=== PATIENT | female | born 1980 | race Hispanic/Latino ===

== ENCOUNTER 2018-08-15 20:24 | Emergency (ER) | payer OTHER, SELFPAY ==
[2018-08-15 20:36] VITALS: BP 125/64; PULSE 66; RESP 16; TEMP 36.9; O2SAT 98
--- NOTE | 2018-08-15 20:41 | DI.RAD.S_ITS ---
PROCEDURE: XR ACUTE ABDOMEN SERIES INDICATIONS: Abdominal pain TECHNIQUE: One view chest and two views of the abdomen were acquired. COMPARISON: None. FINDINGS: Surgical changes and devices: None. Chest: Lungs are clear. Heart size is normal. No pleural effusions. No pneumoperitoneum. Abdomen: Bowel gas pattern is nonobstructive however there is a large amount of diffuse stool. Gas and stool projects in the rectal vault. No suspicious calcifications. Visualized solid organ contours appear normal. Bones: No suspicious bony lesions. IMPRESSION: No specific evidence of bowel obstruction seen at this time although if the patient's symptoms do not improve, continued surveillance with abdominal series radiographs could be performed.Large amount of stool raising possibility of constipation. Dictated by: Colby Ryan M.D. on 08/15/2018 at 21:48 Approved by: Colby Ryan M.D. on 08/15/2018 at 21:49
[2018-08-15] MEDS: SODIUM CHLORIDE 0.9% 1,000 ML 150 ML IV (21:07)
[2018-08-15 21:10] LABS: Add Manual Diff / Slide Review NO; Basophils Absolute Auto 100 /uL (0-100); Basophils Percent Auto 0.8 % (0-2); Eosinophils Absolute Auto 100 /uL (0-450); Eosinophils Percent Auto 1.4 % (2-4); Hematocrit 40.1 % (36-46); Hemoglobin 13.3 g/dL (12.0-16.0); Lymphocytes Absolute Auto 4400 /uL (1100-4500); Lymphocytes Percent Auto 42.2 % (25-40); Mean Corpuscular HGB Conc 33.1 % (30-36); Mean Corpuscular Hemoglobin 28.6 PG (26-34); Mean Corpuscular Volume 86.3 fL (80-100); Monocytes Absolute Auto 800 /uL (0-900); Monocytes Percent Auto 7.6 % (3-14); Neutrophils Absolute Auto 5000 /uL (1500-7000); Platelet Count 261 X10^3/uL (150-400); Red Blood Cell Count 4.65 X10^6/uL (4.0-5.2); Red Cell Distribution Width 13.1 % (11.6-14.8); White Blood Cell Count 10.5 X10^3/uL (4.5-11.0)
[2018-08-15 21:20] LABS: Alanine Aminotransferase 16 IU/L (9-52); Albumin Globulin Ratio 1.5 (1.0-2.8); Alkaline Phosphatase 58 U/L (38-126); Aspartate Aminotransferase 19 IU/L (14-36); BUN Creatinine Ratio 21.7 (6-22); Bilirubin Total 0.3 mg/dL (0.2-1.3); Blood Urea Nitrogen 13 mg/dL (7-17); Calcium 8.9 mg/dL (8.4-10.2); Carbon Dioxide 24 mmol/L (22-32); Chloride 104 mmol/L (98-107); Estimated Glomerular Filt Rate > 60.0 mL/min (>60); Globulin 3.4 g/dL (1.7-4.1); Glucose 84 mg/dL (70-100); HEMOLYSIS 17 (0-50); Lipase 160 U/L (23-300); Potassium 3.3 mmol/L (3.4-5.1); Sodium 143 mmol/L (137-145); Total Protein 8.4 g/dL (6.3-8.2)
--- NOTE | 2018-08-15 21:21 | ED.ABDPAIN ---
HPI - Abdominal Pain General Chief Complaint: Abdominal Pain Stated Complaint: states side lower abdominal pain Time Seen by Provider: 08/15/18 20:25 Source: patient and family Mode of arrival: ambulatory Limitations: no limitations History of Present Illness HPI narrative: 38-year-old female, nonsmoker presents with her and children and a chief complaint of gradually worsening right lower quadrant pain over the course of the day. She states she went to bed feeling fine and awoke this morning at about 4:00 a.m. with pain. She states is worse with bowel movement and with moving. She states that on the drive and she felt every bump in the road. She denies fever or chills nor nausea or vomiting but does have decreased appetite. She states she last ate at about 6:00 p.m.. Her last bowel movement was this morning. She expects to have her next menstrual cycle in about 4 days. She denies dysuria nor vaginal bleeding or discharge. She has had episodes of abdominal pelvic pain thought to be related to adhesions in the past. MD complaint: abdominal pain Onset (ago): hour(s) Pain Consistency: constant Location: RLQ Severity: mild Quality: cramping and aching Radiation: R flank Exacerbating factors: bowel movement and movement Associated symptoms: anorexia Related Data Patient : No Allergies Allergy/AdvReac Type Severity Reaction Status Date / Time acetaminophen [From Vicodin] Allergy Verified 08/15/18 20:38 hydrocodone [From Vicodin] Allergy Verified 08/15/18 20:38 Review of Systems Constitutional Denies chills, Denies fever(s), Denies lethargy and Denies weakness Eyes Denies change in vision, Denies eye discharge, Denies irritation and Denies loss of vision ENT Ears, Nose, Mouth, and Throat: Denies change in voice, Denies neck pain and Denies sore throat Cardiovascular Denies chest pain, Denies irregular heart rhythm, Denies lightheadedness, Denies palpitations, Denies dyspnea, Denies dyspnea on exertion and Denies orthopnea Respiratory Denies cough, Denies dyspnea, Denies dyspnea on exertion and Denies wheezing Gastrointestinal Gastrointestinal: Reports abdominal pain, Denies change in bowel habits, Denies diarrhea, Denies nausea and Denies vomiting Genitourinary Denies hematuria, Denies flank pain, Denies urinary incontinence and Denies urinary urgency Musculoskeletal Denies neck pain Integumentary/Breasts Denies pruritus, Denies erythema, Denies rash and Denies wounds Neurologic Denies confusion, Denies loss of vision and Denies weakness Psychiatric Denies anxiety, Denies confusion, Denies depression, Denies homicidal ideation and Denies suicidal ideation Endocrine Denies palpitations Hematologic/Lymphatic Denies easy bruising Allergic/Immunologic Denies wheezing PFSH Surgical History History of (Acute) Social History marital status: number of children: 4 household members: spouse and children Smoking Status: Never smoker Social History marital status: number of children: 4 household members: spouse and children Smoking Status: Never smoker Exam Narrative Exam Narrative: GENERAL: 38-year-old female obviously uncomfortable, attempting to remain still HEAD: Atraumatic. Normocephalic. No temporal or scalp tenderness. EYES: Pupils equal round and reactive. Extraocular motions intact. No scleral icterus. No injection or drainage. ENT: Nose without bleeding, purulent drainage or septal hematoma. Throat without erythema, tonsillar hypertrophy or exudate. Uvula midline. Airway patent. NECK: Trachea midline. No JVD or lymphadenopathy. Supple, nontender, no meningeal signs. CARDIOVASCULAR: Regular rate and rhythm without murmurs, gallops, or rubs. RESPIRATORY: Clear to auscultation. Breath sounds equal bilaterally. No wheezes, rales, or rhonchi. GASTROINTESTINAL: Abdomen soft, tenderness in right lower quadrant with localized peritonitis, nondistended. No hepato-splenomegaly, or palpable masses. No guarding. Negative heel tap, negative obturator, negative psoas EXTREMITIES: No clubbing, cyanosis, or edema. No joint tenderness, effusion, or edema noted. BACK: Nontender without deformity or crepitance. No flank tenderness. NEURO: AOx3. SKIN: No rash or erythema. Initial Vital Signs Initial Vital Signs: Vital Signs Temperature 98.4 F 08/15/18 20:36 Pulse Rate 66 08/15/18 20:36 Respiratory Rate 16 08/15/18 20:36 Blood Pressure 125/64 08/15/18 20:36 Pulse Oximetry 98 08/15/18 20:36 Course Orders Ordered: ED Orders 08/15/18 20:41 XR acute abdomen series Stat 08/15/18 21:00 Complete Blood Count AUTO DIFF Stat Comprehensive Metabolic Panel Stat Lipase Stat 08/15/18 21:22 CT abdomen pelvis w con Stat Sodium Chloride (Normal Saline 0.9%) 1,000 mls @ 150 mls/hr IV CONT TERRANCE Last Admin: 08/15/18 21:07 Dose: 150 mls/hr Vital Signs - 8 hr 08/15/18 20:36 08/15/18 22:02 Temperature 98.4 F Pulse Rate 66 78 Respiratory Rate 16 Blood Pressure 125/64 Blood Pressure [Left Arm] 117/62 Pulse Oximetry 98 100 MDM - Abdominal Pain Differential Diagnosis Differential diagnosis: Likely abdominal pain, acute appendicitis, calculus of kidney, constipation, diverticulitis, endometriosis, gastroenteritis, pancreatitis and small bowel obstruction Medical Records Attestation: I reviewed the patient's medical records. Lab Data Attestation: I reviewed the patient's lab results. Result diagrams: 08/15/18 21:00 08/15/18 21:00 Lab Results 08/15/18 08/15/18 Range/Units 21:00 21:00 WBC 10.5 (4.5-11.0) X10^3/uL RBC 4.65 (4.0-5.2) X10^6/uL Hgb 13.3 (12.0-16.0) g/dL Hct 40.1 (36-46) % MCV 86.3 (80-100) fL MCH 28.6 (26-34) PG MCHC 33.1 (30-36) % RDW 13.1 (11.6-14.8) % Plt Count 261 (150-400) X10^3/uL Neut % (Auto) 48.0 L (50-75) % Lymph % (Auto) 42.2 H (25-40) % Bryan % (Auto) 7.6 (3-14) % Eos % (Auto) 1.4 L (2-4) % Baso % (Auto) 0.8 (0-2) % Neut # (Auto) 5000 (7957-2109) /uL Lymph # (Auto) 4400 (1026-8136) /uL Bryan # (Auto) 800 (0-900) /uL Eos # (Auto) 100 (0-450) /uL Baso # (Auto) 100 (0-100) /uL Sodium 143 (137-145) mmol/L Potassium 3.3 L (3.4-5.1) mmol/L Chloride 104 (98-107) mmol/L Carbon Dioxide 24 (22-32) mmol/L BUN 13 (7-17) mg/dL Creatinine 0.60 (0.52-1.04) mg/dL Estimated GFR > 60.0 (>60) mL/min BUN/Creatinine Ratio 21.7 (6-22) Glucose 84 (70-100) mg/dL Calcium 8.9 (8.4-10.2) mg/dL Total Bilirubin 0.3 (0.2-1.3) mg/dL AST 19 (14-36) IU/L ALT 16 (9-52) IU/L Alkaline Phosphatase 58 (38-126) U/L Total Protein 8.4 H (6.3-8.2) g/dL Albumin 5.0 (3.5-5.0) g/dL Globulin 3.4 (1.7-4.1) g/dL Albumin/Globulin Ratio 1.5 (1.0-2.8) Lipase 160 (23-300) U/L Point of care testing: Point of Care Testing Test Results Negative Urine Dip Bedside Urine Glucose Negative Bedside Urine Bilirubin - Negative Bedside Urine Ketone - Negative Urine Specific [place] 1.025 Bedside Urine Occult Blood - Negative Bedside Urine pH 6.0 Bedside Urine Protein +/- 15 Bedside Urine Urobilinogen - Negative Bedside Urine Nitrite - Negative Bedside Urine Leukocytes - Negative Esterase Imaging Data Abdominal x-ray: Radiologist's impression: [place] [address] XRay Report Signed Patient: Geovanna Caro MMR#: [id number] : 1980Acct:[id number] Age/Sex: 38 / FDate of Service: 08/15/18 Loc: ED Accession Number: [id number] Procedure: XR acute abdomen series Ordering Provider: Jeremiah Hobbs D.O. PROCEDURE: XR ACUTE ABDOMEN SERIES INDICATIONS: Abdominal pain TECHNIQUE: One view chest and two views of the abdomen were acquired. COMPARISON: None. FINDINGS: Surgical changes and devices: None. Chest: Lungs are clear. Heart size is normal. No pleural effusions. No pneumoperitoneum. Abdomen: Bowel gas pattern is nonobstructive however there is a large amount of diffuse stool. Gas and stool projects in the rectal vault. No suspicious calcifications. Visualized solid organ contours appear normal. Bones: No suspicious bony lesions. IMPRESSION: No specific evidence of bowel obstruction seen at this time although if the patient's symptoms do not improve, continued surveillance with abdominal series radiographs could be performed.Large amount of stool raising possibility of constipation. Dictated by: Colby Ryan M.D. on 08/15/2018 at 21:48 CT scan - abdomen: Radiologist's impression: [address] [address] [address] Scan Report Signed Patient: Geovanna Caro MMR#: [id number] : 1980Acct:[id number] Age/Sex: 38 / FDate of Service: 08/15/18 Loc: ED Accession Number: [id number] Procedure: CT abdomen pelvis w con Ordering Provider: Jeremiah Hobbs D.O. PROCEDURE: CT ABDOMEN PELVIS W CON INDICATIONS: severe RLQ pain TECHNIQUE: After the administration of intravenous contrast, 5 mm thick sections acquired from the diaphragm to the symphysis. 5 mm coronal and sagittal reformats were acquired. For radiation dose reduction, the following was used: automated exposure control, adjustment of mA and/or kV according to patient size. COMPARISON: None. FINDINGS: Image quality: Excellent. ABDOMEN: Lung bases: Lung bases are clear. Heart size is normal. Solid organs: Liver is normal in size and enhancement. Gallbladder partially collapsed otherwise unremarkable. Biliary system is non dilated. Pancreas enhances normally. Spleen is normal in size and enhancement. No adrenal nodules. Kidneys demonstrate normal size and enhancement, without hydronephrosis. Peritoneum and bowel: Bowel loops demonstrate normal wall thickness and caliber. No free fluid or air. The appendix is within normal limits Rectum is grossly unremarkable Nodes and vessels: No retroperitoneal or mesenteric adenopathy by size criteria. Aorta and inferior vena cava are normal in size. Miscellaneous: No ventral hernias. PELVIS: Genitourinary: Bladder wall thickness is normal. Heterogeneous attenuation seen in the right adnexa raising possibility of possible hemorrhagic or ruptured ovarian cyst (in the setting of negative test). Miscellaneous: No inguinal hernias or adenopathy. Bones: No suspicious bony lesions. No vertebral body compression fractures. IMPRESSION: Normal appearance of the appendix. Possible hemorrhagic or ruptured ovarian cyst although technically indeterminate. This could be further assessed with pelvic ultrasound as clinically warranted. Elsewhere, no acute process seen. Dictated by: Colby Ryan M.D. on 08/15/2018 at 21:54 Approved by: Colby Ryan M.D. on 08/15/2018 at 21:58 [facility] Narrative Medical decision making narrative: I had a lengthy discussion with the patient and her at the bedside. The CT has come back and shows no appendicitis or other ominous finding and suggests the possibility of ovarian cyst which is very consistent patient's presentation. We discussed whether not a pelvic ultrasound would change her disposition tonight and I think it is unlikely. Ovarian torsion and tubo-ovarian abscess are considered but thought much less likely. She has had her questions answered to her apparent satisfaction, has been given extensive return precautions and has verbalized her understanding of those precautions. Discharge Plan Departure Patient Disposition: Home Clinical Impression: Ovarian cyst Qualifiers: Laterality: right Qualified Code(s): N83.201 - Unspecified ovarian cyst, right side Instructions: DI for Ovarian Cyst Activity Restrictions/Additional Instructions: *You have been diagnosed with [ acute right lower quadrant pain from ovarian cyst] *What to do: *Take medications as directed *Follow up with your primary care provider in 2-3 days, call for an appointment. Let them know you were seen in the Emergency Department and that we ask that you be seen in follow up *Return to ER if you should have any new, worsening or concerning symptoms, such as [ worsening pain, fever, vomiting or any other bothersome symptoms]
--- NOTE | 2018-08-15 21:32 | ED_ITS ---
HPI - Abdominal Pain General Chief Complaint: Abdominal Pain Stated Complaint: states side lower abdominal pain Time Seen by Provider: 08/15/18 20:25 Source: patient and family Mode of arrival: ambulatory Limitations: no limitations History of Present Illness HPI narrative: 38-year-old female, nonsmoker presents with her and children and a chief complaint of gradually worsening right lower quadrant pain over the course of the day. She states she went to bed feeling fine and awoke this morning at about 4:00 a.m. with pain. She states is worse with bowel movement and with moving. She states that on the drive and she felt every bump in the road. She denies fever or chills nor nausea or vomiting but does have decreased appetite. She states she last ate at about 6:00 p.m.. Her last bowel movement was this morning. She expects to have her next menstrual cycle in about 4 days. She denies dysuria nor vaginal bleeding or discharge. She has had episodes of abdominal pelvic pain thought to be related to adhesions in the past. MD complaint: abdominal pain Onset (ago): hour(s) Pain Consistency: constant Location: RLQ Severity: mild Quality: cramping and aching Radiation: R flank Exacerbating factors: bowel movement and movement Associated symptoms: anorexia Related Data Patient : No Allergies Allergy/AdvReac Type Severity Reaction Status Date / Time acetaminophen [From Vicodin] Allergy Verified 08/15/18 20:38 hydrocodone [From Vicodin] Allergy Verified 08/15/18 20:38 Review of Systems Constitutional Denies chills, Denies fever(s), Denies lethargy and Denies weakness Eyes Denies change in vision, Denies eye discharge, Denies irritation and Denies loss of vision ENT Ears, Nose, Mouth, and Throat: Denies change in voice, Denies neck pain and Denies sore throat Cardiovascular Denies chest pain, Denies irregular heart rhythm, Denies lightheadedness, Denies palpitations, Denies dyspnea, Denies dyspnea on exertion and Denies orthopnea Respiratory Denies cough, Denies dyspnea, Denies dyspnea on exertion and Denies wheezing Gastrointestinal Gastrointestinal: Reports abdominal pain, Denies change in bowel habits, Denies diarrhea, Denies nausea and Denies vomiting Genitourinary Denies hematuria, Denies flank pain, Denies urinary incontinence and Denies urinary urgency Musculoskeletal Denies neck pain Integumentary/Breasts Denies pruritus, Denies erythema, Denies rash and Denies wounds Neurologic Denies confusion, Denies loss of vision and Denies weakness Psychiatric Denies anxiety, Denies confusion, Denies depression, Denies homicidal ideation and Denies suicidal ideation Endocrine Denies palpitations Hematologic/Lymphatic Denies easy bruising Allergic/Immunologic Denies wheezing PFSH Surgical History History of (Acute) Social History marital status: number of children: 4 household members: spouse and children Smoking Status: Never smoker Social History marital status: number of children: 4 household members: spouse and children Smoking Status: Never smoker Exam Narrative Exam Narrative: GENERAL: 38-year-old female obviously uncomfortable, attempting to remain still HEAD: Atraumatic. Normocephalic. No temporal or scalp tenderness. EYES: Pupils equal round and reactive. Extraocular motions intact. No scleral icterus. No injection or drainage. ENT: Nose without bleeding, purulent drainage or septal hematoma. Throat without erythema, tonsillar hypertrophy or exudate. Uvula midline. Airway patent. NECK: Trachea midline. No JVD or lymphadenopathy. Supple, nontender, no meningeal signs. CARDIOVASCULAR: Regular rate and rhythm without murmurs, gallops, or rubs. RESPIRATORY: Clear to auscultation. Breath sounds equal bilaterally. No wheezes, rales, or rhonchi. GASTROINTESTINAL: Abdomen soft, tenderness in right lower quadrant with localized peritonitis, nondistended. No hepato-splenomegaly, or palpable masses. No guarding. Negative heel tap, negative obturator, negative psoas EXTREMITIES: No clubbing, cyanosis, or edema. No joint tenderness, effusion, or edema noted. BACK: Nontender without deformity or crepitance. No flank tenderness. NEURO: AOx3. SKIN: No rash or erythema. Initial Vital Signs Initial Vital Signs: Vital Signs Temperature 98.4 F 08/15/18 20:36 Pulse Rate 66 08/15/18 20:36 Respiratory Rate 16 08/15/18 20:36 Blood Pressure 125/64 08/15/18 20:36 Pulse Oximetry 98 08/15/18 20:36 Course Orders Ordered: ED Orders 08/15/18 20:41 XR acute abdomen series Stat 08/15/18 21:00 Complete Blood Count AUTO DIFF Stat Comprehensive Metabolic Panel Stat Lipase Stat 08/15/18 21:22 CT abdomen pelvis w con Stat Sodium Chloride (Normal Saline 0.9%) 1,000 mls @ 150 mls/hr IV CONT TERRANCE Last Admin: 08/15/18 21:07 Dose: 150 mls/hr Vital Signs - 8 hr 08/15/18 20:36 08/15/18 22:02 Temperature 98.4 F Pulse Rate 66 78 Respiratory Rate 16 Blood Pressure 125/64 Blood Pressure [Left Arm] 117/62 Pulse Oximetry 98 100 MDM - Abdominal Pain Differential Diagnosis Differential diagnosis: Likely abdominal pain, acute appendicitis, calculus of kidney, constipation, diverticulitis, endometriosis, gastroenteritis, panc reatitis and small bowel obstruction Medical Records Attestation: I reviewed the patient's medical records. Lab Data Attestation: I reviewed the patient's lab results. Result diagrams: 08/15/18 21:00 08/15/18 21:00 Lab Results 08/15/18 08/15/18 Range/Units 21:00 21:00 WBC 10.5 (4.5-11.0) X10^3/uL RBC 4.65 (4.0-5.2) X10^6/uL Hgb 13.3 (12.0-16.0) g/dL Hct 40.1 (36-46) % MCV 86.3 (80-100) fL MCH 28.6 (26-34) PG MCHC 33.1 (30-36) % RDW 13.1 (11.6-14.8) % Plt Count 261 (150-400) X10^3/uL Neut % (Auto) 48.0 L (50-75) % Lymph % (Auto) 42.2 H (25-40) % [place] % (Auto) 7.6 (3-14) % Eos % (Auto) 1.4 L (2-4) % Baso % (Auto) 0.8 (0-2) % Neut # (Auto) 5000 (1478-3419) /uL Lymph # (Auto) 4400 (5649-6041) /uL [place] # (Auto) 800 (0-900) /uL Eos # (Auto) 100 (0-450) /uL Baso # (Auto) 100 (0-100) /uL Sodium 143 (137-145) mmol/L Potassium 3.3 L (3.4-5.1) mmol/L Chloride 104 (98-107) mmol/L Carbon Dioxide 24 (22-32) mmol/L BUN 13 (7-17) mg/dL Creatinine 0.60 (0.52-1.04) mg/dL Estimated GFR > 60.0 (>60) mL/min BUN/Creatinine Ratio 21.7 (6-22) Glucose 84 (70-100) mg/dL Calcium 8.9 (8.4-10.2) mg/dL Total Bilirubin 0.3 (0.2-1.3) mg/dL AST 19 (14-36) IU/L ALT 16 (9-52) IU/L Alkaline Phosphatase 58 (38-126) U/L Total Protein 8.4 H (6.3-8.2) g/dL Albumin 5.0 (3.5-5.0) g/dL Globulin 3.4 (1.7-4.1) g/dL Albumin/Globulin Ratio 1.5 (1.0-2.8) Lipase 160 (23-300) U/L Point of care testing: Point of Care Testing Test Results Negative Urine Dip Bedside Urine Glucose Negative Bedside Urine Bilirubin - Negative Bedside Urine Ketone - Negative Urine Specific [place] 1.025 Bedside Urine Occult Blood - Negative Bedside Urine pH 6.0 Bedside Urine Protein +/- 15 Bedside Urine Urobilinogen - Negative Bedside Urine Nitrite - Negative Bedside Urine Leukocytes - Negative Esterase Imaging Data Abdominal x-ray: Radiologist's impression: [place] [address] XRay Report Signed Patient: Geovnana Caro [facility]#: [id number] : 1980Acct:[id number] Age/Sex: 38 / FDate of Service: 08/15/18 Loc: ED Accession Number: [id number] Procedure: XR acute abdomen series Ordering Provider: Jeremiah Hobbs D.O. PROCEDURE: XR ACUTE ABDOMEN SERIES INDICATIONS: Abdominal pain TECHNIQUE: One view chest and two views of the abdomen were acquired. COMPARISON: None. FINDINGS: Surgical changes and devices: None. Chest: Lungs are clear. Heart size is normal. No pleural effusions. No pneumoperitoneum. Abdomen: Bowel gas pattern is nonobstructive however there is a large amount of diffuse stool. Gas and stool projects in the rectal vault. No suspicious calcifications. Visualized solid organ contours appear normal. Bones: No suspicious bony lesions. IMPRESSION: No specific evidence of bowel obstruction seen at this time although if the patient's symptoms do not improve, continued surveillance with abdominal series radiographs could be performed.Large amount of stool raising possibility of constipation. Dictated by: Colby Ryan M.D. on 08/15/2018 at 21:48 CT scan - abdomen: Radiologist's impression: [address] [address] [address] Scan Report Signed Patient: Geovanna Caro [facility]#: [id number] : 1980Acct:[id number] Age/Sex: 38 / FDate of Service: 08/15/18 Loc: ED Accession Number: [id number] Procedure: CT abdomen pelvis w con Ordering Provider: Jeremiah Hobbs D.O. PROCEDURE: CT ABDOMEN PELVIS W CON INDICATIONS: severe RLQ pain TECHNIQUE: After the administration of intravenous contrast, 5 mm thick sections acquired f rom the diaphragm to the symphysis. 5 mm coronal and sagittal reformats were acquired. For radiation dose reduction, the following was used: automated exposure control, adjustment of mA and/or kV according to patient size. COMPARISON: None. FINDINGS: Image quality: Excellent. ABDOMEN: Lung bases: Lung bases are clear. Heart size is normal. Solid organs: Liver is normal in size and enhancement. Gallbladder partially collapsed otherwise unremarkable. Biliary system is non dilated. Pancreas enhances normally. Spleen is normal in size and enhancement. No adrenal nodules. Kidneys demonstrate normal size and enhancement, without hydronephrosis. Peritoneum and bowel: Bowel loops demonstrate normal wall thickness and caliber. No free fluid or air. The appendix is within normal limits Rectum is grossly unremarkable Nodes and vessels: No retroperitoneal or mesenteric adenopathy by size criteria. Aorta and inferior vena cava are normal in size. Miscellaneous: No ventral hernias. PELVIS: Genitourinary: Bladder wall thickness is normal. Heterogeneous attenuation seen in the right adnexa raising possibility of possible hemorrhagic or ruptured ovarian cyst (in the setting of negative test). Miscellaneous: No inguinal hernias or adenopathy. Bones: No suspicious bony lesions. No vertebral body compression fractures. IMPRESSION: Normal appearance of the appendix. Possible hemorrhagic or ruptured ovarian cyst although technically indeterminate. This could be further assessed with pelvic ultrasound as clinically warranted. Elsewhere, no acute process seen. Dictated by: Colby Ryan M.D. on 08/15/2018 at 21:54 Approved by: Colby Ryan M.D. on 08/15/2018 at 21:58 [facility] Narrative Medical decision making narrative: I had a lengthy discussion with the patient and her at the bedside. The CT has come back and shows no appendicitis or other ominous finding and suggests the possibility of ovarian cyst which is very consistent patient's presentation. We discussed whether not a pelvic ultrasound would change her disposition tonight and I think it is unlikely. Ovarian torsion and tubo-ovarian abscess are considered but thought much less likely. She has had her questions answered to her apparent satisfaction, has been given extensive return precautions and has verbalized her understanding of those precautions. Discharge Plan Departure Patient Disposition: Home Clinical Impression: Ovarian cyst Qualifiers: Laterality: right Qualified Code(s): N83.201 - Unspecified ovarian cyst, right side Instructions: DI for Ovarian Cyst Activity Restrictions/Additional Instructions: *You have been diagnosed with [ acute right lower quadrant pain from ovarian cyst] *What to do: *Take medications as directed *Follow up with your primary care provider in 2-3 days, call for an appointment. Let them know you were seen in the Emergency Department and that we ask that you be seen in follow up *Return to ER if you should have any new, worsening or concerning symptoms, such as [ worsening pain, fever, vomiting or any other bothersome symptoms]
[2018-08-15 22:02] VITALS: BP 117/62; PULSE 78; O2SAT 100
== END 2018-08-15 22:15 | disposition home or self-care (01) ==
PROVIDERS: Emergency Provider Emergency Medicine
DX: N83.201 Unspecified ovarian cyst, right side (principal)
CPT/HCPCS: 36415; 36591; 74022; 74177; 80053; 81003; 81025; 83690; 85025; 96360; 99283; 99285; Q9967